=== PATIENT | male | born 1945 | race Caucasian/White ===

== ENCOUNTER 2018-03-11 11:20 | Emergency (ER) | payer MEDICARE, BC ==
[2018-03-11 11:36] VITALS: BP 121/77
[2018-03-11] MEDS ORDERED: Lidocaine 1% MPF* 2 ML VIAL INJ ONE (13:03)
--- NOTE | 2018-03-11 13:03 | UC ---
Upper Extremity HPI - HPI Summary HPI Summary: 73 y/o male presents to the urgent care c/o left middle finger red and swollen denies trauma - History of Current Complaint Chief Complaint: UCSkin Stated Complaint: RED SWOLLEN FINGER Time Seen by Provider: 03/11/18 12:09 Hx Obtained From: Patient Pain Intensity: 6 - Allergies/Home Medications Allergies/Adverse Reactions: Allergies Allergy/AdvReac Type Severity Reaction Status Date / Time No Known Allergies Allergy Verified 03/11/18 11:36 Home Medications: Home Medications Atorvastatin* [Lipitor 40 MG*] 40 mg PO DAILY 03/11/18 [History Confirmed ] Fluticasone NASAL SPRAY 50MCG* 50 mcg DAILY 03/11/18 [History Confirmed 03/11/18 ] Omeprazole 20 mg PO DAILY 03/11/18 [History Confirmed 03/11/18] PMH/Surg Hx/FS Hx/Imm Hx - Surgical History Surgical History: Yes Surgery Procedure, Year, and Place: shoulder,foot - Social History Alcohol Use: None Substance Use Type: None Smoking Status (MU): Never Smoked Tobacco Physical Exam - Summary Physical Exam Summary: Vital Signs Reviewed: Yes General: well developed, well nourished male sitting in the examining table w/o any apparent distress Eye Exam: Normal Eyes: Positive: Conjunctiva Clear - PERRLA, EOMI, fundi grossly normal ENT: Positive: Normal ENT inspection, Hearing grossly normal, Pharynx normal, TMs normal Neck: Positive: Supple, Nontender, No Lymphadenopathy Respiratory: Positive: Chest non-tender, Lungs clear, Normal breath sounds, No respiratory distress Cardiovascular: Positive: RRR, No Murmur, Pulses Normal, Brisk Capillary Refill Abdomen Description: Positive: Nontender, No Organomegaly, Soft. Negative: CVA Tenderness (R), CVA Tenderness (L) Bowel Sounds: Positive: Present Musculoskeletal: Positive: Strength Intact, ROM Intact, No Edema Neurological: Positive: Alert, Muscle Tone Normal Psychological Exam: Normal Skin: Positive: RT # 3 phalanx near DIPJ with a small erythematous pustule that is indurated and fluctuant, tender to palpation, swollen, and warm to touch about .5cm in size. FROM of phalanx, sensation is intact, capillary refill WNL, reflexes WNL Triage Information Reviewed: Yes Vital Signs: Initial Vital Signs Temp 98.4 F 03/11/18 11:31 Pulse 64 03/11/18 11:31 Resp 16 03/11/18 11:31 BP 121/77 03/11/18 11:31 Pulse Ox 100 03/11/18 11:31 Upper Extremity Course/Dx - Differential Dx/Diagnosis Provider Diagnoses: 1- I &D of left 3rd phalanx paronychia Discharge - Discharge Plan Condition: Stable Disposition: HOME Prescriptions: Aluminum Sulf/Ca Acetate ARLYN* [[place] ARLYN*] 1 applic TOPICAL DAILY #1 box Bacitracin OINTMENT* 1 applic TOPICAL BID #1 tube Cephalexin CAP* [Keflex CAP*] 500 mg PO QID #28 cap Patient Education Materials: Paronychia (ED) Referrals: Denzel Blake MD [Primary Care Provider] - 2 Days Additional Instructions: 1-Please take full course of antibiotic to avoid resistance. Keep wound clean and dry with a sterile dressing. Apply bacitracin topical as directed 2-. Take Naproxen PO q6-8hrs you hace at home prn for pain or swelling. 3-If you develop fever or redness despite antibiotic please go to the ER immediately or return to the Urgent care. 4- Wound culture sent to lab, if any abnormal result you will receive a call from us. 5-Soak your finger w/ domeboro as directed to alleviate swelling - Billing Disposition and Condition Condition: STABLE Disposition: Home
[2018-03-11] MEDS ORDERED: Lidocaine 1%* 5 ML VIAL INJ ONE (13:08)
--- NOTE | 2018-03-15 11:35 | PN ---
Progress Note - Progress Note Date of Service: 03/15/18 Note: The patient's wound culture grew Streptococcus intermedius, normal sunshine, eikenella corrodens. strept is sensitive to keflex which patient was placed on. no further action at this time. <Joslyn Morales - Last Filed: 03/15/18 11:33> Attestation Statement User Type: Provider - I was available for consult. The patient was not presented to me. -Ana <Romana Infante - Last Filed: 03/15/18 13:42>
== END 2018-03-11 14:19 | disposition home or self-care (01) ==
LOC: UCEAST 11:20
DX: L03.012 Cellulitis of left finger (principal)
CPT/HCPCS: 10060; 87070; 87077; 87186; 87205; 87640; 87641; 99212; G0463